=== PATIENT | female | born 1995 | race African-American/Black ===

== ENCOUNTER 2018-07-17 09:35 | Emergency (ER) | payer SELFPAY ==
[~2018-07-17] VITALS: Ht 170.2 cm; Wt 102.0 kg
[~2018-07-17 09:35] MED LIST: ACET-704 PO; IBUP800T19 PO
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
[2018-07-17] MEDS ORDERED: NAPR-683 PO ×2 (10:20→10:25)
[2018-07-17] MEDS ORDERED: CYCL5TAB PO (10:20)
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
[2018-07-17] MEDS ORDERED: CYCL-331 PO (10:25)
[2018-07-17 10:32] VITALS: BP 171/110
== END 2018-07-17 10:33 | disposition home or self-care (01) ==
LOC: ER 09:35
DX: S43.491A Other sprain of right shoulder joint, initial encounter (principal); F41.9 Anxiety disorder, unspecified; F32.9 Major depressive disorder, single episode, unspecified; J45.909 Unspecified asthma, uncomplicated; F17.210 Nicotine dependence, cigarettes, uncomplicated; Z71.6 Tobacco abuse counseling; W18.30XA Fall on same level, unspecified, initial encounter; Y93.89 Activity, other specified; Y92.89 Other specified places as the place of occurrence of the external cause; Y99.8 Other external cause status
CPT/HCPCS: 73030; 99284